=== PATIENT | female | born 1985 | race Caucasian/White ===

== ENCOUNTER 2020-09-29 09:37 | Inpatient (IN) ==
[2020-09-29] MEDS ORDERED: 0.9 % SODIUM CHLORIDE 1,000 ML IV ONE ×2 (10:18→14:35)
[2020-09-29] MEDS ORDERED: PROMETHAZINE 25 MG/ML VIAL IV ONE (10:18)
[2020-09-29] MEDS ORDERED: ACETAMINOPHEN 650 MG/65 ML BOTTLE IV ONE (10:18)
--- NOTE | 2020-09-29 10:25 | Emergency Department Note ---
Nausea/Vomiting/Diarrhea HPI General Chief complaint: Nausea/Vomiting/Diarrhea Stated complaint: N/V/D, Flank pain bilaterally, SOB Time Seen by Provider: 09/29/20 09:49 Source: patient Mode of arrival: ambulatory Limitations: no limitations History of Present Illness HPI Narrative: Narrative: 35-year-old female patient returns emergency department with ongoing chief complaint of persistent nausea, vomiting, diarr hea, abdominal pain, and sweats x6 days. She was seen by a colleague in the emergency department on 09/26 after suffering 3 days similar symptoms. At that time she had some epigastric discomfort as well. She been taking occasional [place]. She had a mild slight cough and complaints of shortness of breath. During that visit she was afebrile with a temperature 98.5. Her laboratory studies were unremarkable with a normal CBC and an essentially normal CMP with the exception of mild AST elevation of 46. She has history of pancreatitis but her lipase was normal at 39. Chest x-ray is performed that was read as negative. Covid swab was performed that was also negative. She was discharged home on Zofran and dietary restrictions. Unfortunately, since being home she has had persistent nausea. She has vomited too numerous to count. Today, she mentions vomiting "every 45 minutes since I have been awake". She also has persistent watery diarrhea. Again too numerous to count. She denies hematochezia or hematemesis. She has had sweats at home. She was initially afebrile in triage. However repeat temperature during examination showed an increase to 100.1. She denies ingesting any foul or suspicious foods prior to symptom onset. She denies any other sick contacts. ROS: Admits to headaches. Denies tinnitus or vision changes. Admits to mild nonproductive cough. Denies runny nose or sinus congestion. Admits to mild shortness of breath. She continues to smoke up to quarter pack daily. Denies retrosternal chest pain or palpitations. Admits to abdominal pain localized around her umbilicus. Denies dysuria, hematuria, urinary frequency, or urinary urgency. Admits to generalized weakness. Related Data Home Medications Medication Instructions Recorded Confirmed escitalopram oxalate 10 mg tablet 15 mg PO QHS 05/09/20 09/29/20 zolpidem 5 mg PO PRN PRN 07/09/20 09/29/20 hydrochlorothiazide 12.5 mg PO QAMP PRN 08/09/20 09/29/20 hydroxyzine HCl 25 mg PO BID PRN 08/09/20 09/29/20 Allergies Allergy/AdvReac Type Severity Reaction Status Date / Time codeine Allergy Intermediate agitation Verified 07/22/20 14:10 gabapentin Allergy Intermediate heart Verified 07/22/20 14:10 palpitations ketorolac [From Toradol] Allergy Intermediate spasms Verified 07/22/20 14:10 tramadol AdvReac Severe Seizure Verified 09/29/20 17:16 morphine AdvReac Vomiting Verified 07/22/20 14:10 Review of Systems ROS ROS Narrative: Narrative: All systems ED: reviewed and negative except as stated. [facility] Narrative Patient History Narrative: Narrative: Medical/Surgical/Family History All Active Problems (Updated 09/29/20 @ 13:06 by Orville Gaspar PA-C) Pancreatitis (Acute) Gastroenteritis (Acute) Pyelonephritis (Acute) Nausea and vomiting (Acute) Epigastric pain (Acute) Social History Smoking Status: Current every day smoker Alcohol Intake Frequency: a few times a week Substance Use: marijuana Exam Narrative Narrative: Narrative: General Limitations: no limitations General appearance: Present other (Well-developed, well-nourished, acutely ill- appearing 35-year-old female patient laying semirecumbent on the emergency room gurney. She is in no acute respiratory distress. She is febrile with a temperature of 100.1. She is tachycardic at 117. At this time she does meet SIRS criteria. Other vital signs are normal.) Head Head: Present normocephalic Eye Eye: Present normal appearance, PERRL and EOMI; Absent scleral icterus and conjunctival injection ENT ENT: Present normal oropharynx and mucous membranes dry Neck Neck: Present trachea midline; Absent lymphadenopathy and thyromegaly Chest Chest: Present symmetric chest wall rise Respiratory Respiratory: Present normal lung sounds bilaterally; Absent respiratory distress, rales/crackles, wheezes, stridor, accessory muscle use, prolonged expiratory phase and decreased breath sounds Cardiovascular Cardiovascular: Present regular rate and normal rhythm; Absent systolic murmur and diastolic murmur Adbominal Abdominal: Present soft, tenderness and hyperactive bowel sounds; Absent distention, guarding, rebound, rigidity, organomegaly and mass Expanded Abdominal Abdominal Tenderness: Present diffuse and moderate Extremities Extremities: Present normal inspection, full ROM and normal capillary refill Back Back: Present normal inspection and full ROM; Absent CVA tenderness (R) and CVA tenderness (L) Neurological Neurological: Present alert and oriented X3 Psychiatric Psychiatric: Present normal affect and normal mood Skin Skin: Present warm (WNL), diaphoretic and normal color Course Course Course Narrative: Differential diagnosis of nausea and vomiting in the adult patient includes the following: Acute gastroenteritis, vestibular neuritis, gastroparesis, GERD, cyclic vomiting syndrome, gastric outlet obstruction, eosinophilic gastroenteritis, and chronic idiopathic intestinal pseudoobstruction. Patient was seen recently in our emergency department and diagnosed gastroenteritis. She continues to have nausea, vomiting, and diarrhea she is likely associated with this diagnosis. However, she is now worsened and is tachycardic and febrile. I am going to order screening laboratory studies. She had a chest x-ray that was considered normal 3 days ago. She has no adventitious lung sounds on exam today. I am not going to order repeat imaging at this time. She had mild diffuse abdominal pain on exam without focal findings. I am going to wait to perform additional abdominal imaging until the results of her other testing are back. Patient was given normal saline 1000 mL as a bolus. She was given Phenergan 25mg IVP to help with the nausea. I am going to give her IV acetaminophen 650 mg to help with the fever. I am going to order stool culture and fecal leukocytes. Reevaluation(s) Reevaluation #1: A review of the patient's diagnostics show the following: CBC WBC 19.9, RBC 4.27, hemoglobin 14.3, hematocrit 41.6, platelets 169. Lactic acid 2.4. CMP CO2 21, glucose 108, total bilirubin 1.6, all others normal limits. Lipase 12. Urinalysis showing cloudy yellow urine with specific gravity 1.013, positive proteinuria, positive ketonuria, positive nitrites, positive leukocyte E[place], positive WBCs/RBCs. There was mention transitional cells and few bacteria. This is considered equivocal case. Abdominal/pelvic CT scan with contrast showing developing pyelonephritis. After reviewing all the data I ordered blood cultures and started the patient on 2 g IV for suspected pyelonephritis. Time: 12:53 Reevaluation #2: After reviewing the data I reached out to our hospitalist (Dr. Manzanraes) about admitting the patient here for ongoing treatment. At this time Dr. Manzanares is excepted the patient for admission. All further treatment decisions, modalities, and ultimate patient disposition be carried out by Dr. Manzanares. Time: 13:32 Vital Signs Vital signs: Vital Signs Temperature 98.4 F 09/29/20 09:42 Pulse Rate 117 H 09/29/20 09:42 Respiratory Rate 18 09/29/20 09:42 Blood Pressure 112/63 09/29/20 09:42 Pulse Oximetry (%) 99 09/29/20 09:42 Temperature 98 F 09/29/20 19:38 Pulse Rate 101 H 09/29/20 19:38 Respiratory Rate 16 09/29/20 19:38 Blood Pressure 104/67 09/29/20 19:38 Pulse Oximetry (%) 98 09/29/20 19:38 MDM MDM Narrative Medical decision making narrative: Narrative: Lab Data Lab results reviewed: Yes I reviewed the patient's lab results. Result diagrams: 09/29/20 11:41 09/29/20 10:30 Labs: Lab Results 09/29/20 09/29/20 09/29/20 Range/Units 10:30 10:37 11:09 WBC (4.5-11.0) K/mcL RBC (4.00-5.20) M/mcL Hgb (12.0-15.0) g/dL Hct (36.0-48.0) % MCV (80.0-100.0) fL MCH (26.0-34.0) pg MCHC (31.0-36.0) g/dL RDW (11.5-14.5) % Plt Count (140-440) K/mcL MPV (7.4-10.4) fL Neut % (Auto) (38.0-78.0) % Lymph % (Auto) (15.0-49.0) % [place] % (Auto) (1.0-12.0) % Eos % (Auto) (0.0-7.0) % Baso % (Auto) (0.0-2.0) % Lymph # (Auto) (1.50-4.80) K/mcL [place] # (Auto) (0.10-0.90) K/mcL Eos # (Auto) (0.00-0.70) K/mcL Baso # (Auto) (0.00-0.20) K/mcL Absolute Neutrophils (1.80-8.00) K/mcL VBG Lactic Acid 2.4 H (0.5-2.0) mmol/L Sodium 133 (133-145) mmol/L Potassium 3.3 (3.3-5.1) mmol/L Chloride 96 (96-108) mmol/L Carbon Dioxide 21 L (22-30) mmol/L Anion Gap 16.0 (8.0-16.0) BUN 8 (6-20) mg/dL Creatinine 1.0 (0.6-1.1) mg/dL GFR Calculation 74 Glucose 108 H (70-105) mg/dL Calcium 8.7 (8.6-10.4) mg/dL Total Bilirubin 1.6 H (0.1-1.0) mg/dL AST 28 (<32) U/L ALT 20 (<40) U/L Alkaline Phosphatase 107 (39-117) U/L Total Protein 7.2 (5.9-8.4) gm/dL Albumin 3.6 (3.2-5.2) gm/dL Globulin 3.6 (2.2-3.7) gm/dL Albumin/Globulin Ratio 1.0 (1.0-2.3) Lipase 12 (7-60) U/L Urine Color Yellow Urine Appearance Cloudy A (Clear) Urine pH 7.0 (5.0-9.0) Ur Specific [place] 1.013 (1.000-1.035) Urine Protein 100 A (Negative) mg/dL Urine Glucose (UA) Negative (Negative) mg/dL Urine Ketones 5 A (Negative) mg/dL Urine Occult Blood 0.20 (Negative) mg/dL Urine Nitrate Pos A (Negative) Urine Bilirubin Negative (Negative) mg/dL Urine Urobilinogen Negative mg/dL Ur Leukocyte Esterase 500 A (Negative) /ug Urine RBC 14 H (0-1) /hpf Urine WBC > 182 H (0-4) /hpf Ur Squamous Epith Cells 21 H (0-4) /hpf Ur Transition Epith Cell 3 H (0-2) /hpf Urine Bacteria Few A (0) /hpf Urine Mucus Few A (None) /hpf Ur Culture Indicated? No 09/29/20 Range/Units 11:41 WBC 19.9 H (4.5-11.0) K/mcL RBC 4.27 (4.00-5.20) M/mcL Hgb 14.3 (12.0-15.0) g/dL Hct 41.6 (36.0-48.0) % MCV 97.4 (80.0-100.0) fL MCH 33.5 (26.0-34.0) pg MCHC 34.4 (31.0-36.0) g/dL RDW 13.9 (11.5-14.5) % Plt Count 169 (140-440) K/mcL MPV 10.0 (7.4-10.4) fL Neut % (Auto) 89.7 H (38.0-78.0) % Lymph % (Auto) 4.8 L (15.0-49.0) % [place] % (Auto) 5.1 (1.0-12.0) % Eos % (Auto) 0.1 (0.0-7.0) % Baso % (Auto) 0.3 (0.0-2.0) % Lymph # (Auto) 0.95 L (1.50-4.80) K/mcL [place] # (Auto) 1.02 H (0.10-0.90) K/mcL Eos # (Auto) 0.01 (0.00-0.70) K/mcL Baso # (Auto) 0.06 (0.00-0.20) K/mcL Absolute Neutrophils 17.83 H (1.80-8.00) K/mcL VBG Lactic Acid (0.5-2.0) mmol/L Sodium (133-145) mmol/L Potassium (3.3-5.1) mmol/L Chloride (96-108) mmol/L Carbon Dioxide (22-30) mmol/L Anion Gap (8.0-16.0) BUN (6-20) mg/dL Creatinine (0.6-1.1) mg/dL GFR Calculation Glucose (70-105) mg/dL Calcium (8.6-10.4) mg/dL Total Bilirubin (0.1-1.0) mg/dL AST (<32) U/L ALT (<40) U/L Alkaline Phosphatase (39-117) U/L Total Protein (5.9-8.4) gm/dL Albumin (3.2-5.2) gm/dL Globulin (2.2-3.7) gm/dL Albumin/Globulin Ratio (1.0-2.3) Lipase (7-60) U/L Urine Color Urine Appearance (Clear) Urine pH (5.0-9.0) Ur Specific [place] (1.000-1.035) Urine Protein (Negative) mg/dL Urine Glucose (UA) (Negative) mg/dL Urine Ketones (Negative) mg/dL Urine Occult Blood (Negative) mg/dL Urine Nitrate (Negative) Urine Bilirubin (Negative) mg/dL Urine Urobilinogen mg/dL Ur Leukocyte Esterase (Negative) /ug Urine RBC (0-1) /hpf Urine WBC (0-4) /hpf Ur Squamous Epith Cells (0-4) /hpf Ur Transition Epith Cell (0-2) /hpf Urine Bacteria (0) /hpf Urine Mucus (None) /hpf Ur Culture Indicated? Radiology Data Radiology results reviewed: Yes I reviewed the patient's radiology results. Radiology results narrative: Verbal read from the radiologist about the patient's abdominal/pelvic CT scan with contrast showing developing pyelonephritis to the right kidney with swelling and edema. No obvious abscess or renal stone noted. Discharge Plan Patient/Caregiver Discharge Instructions Pt seen by BOX ORDER PERSON/PA only: Yes Clinical Impression: Pyelonephritis Patient Disposition: Xfer As Inpt ([facility]) Condition: Good Discharge Date/Time: 09/29/20 15:22
[2020-09-29 11:34] LABS: ALT/SGPT 20 U/L (<40); AST/SGOT 28 U/L (<32); Albumin 3.6 gm/dL (3.2-5.2); Alkaline Phosphatase 107 U/L (39-117); Bilirubin,Total 1.6 mg/dL (0.1-1.0); Blood Urea Nitrogen 8 mg/dL (6-20); Calcium 8.7 mg/dL (8.6-10.4); Carbon Dioxide 21 mmol/L (22-30); Chloride 96 mmol/L (96-108); Globulin 3.6 gm/dL (2.2-3.7); Glomerular Filtration Rate 74; Glucose 108 mg/dL (70-105)
[2020-09-29 12:14] LABS: Basophils # (Auto) 0.06 K/mcL (0.00-0.20); Basophils % (Auto) 0.3 % (0.0-2.0); Eosinophils # (Auto) 0.01 K/mcL (0.00-0.70); Eosinophils % (Auto) 0.1 % (0.0-7.0); Hematocrit 41.6 % (36.0-48.0); Hemoglobin 14.3 g/dL (12.0-15.0); Lymphocytes # (Auto) 0.95 K/mcL (1.50-4.80); Lymphocytes % (Auto) 4.8 % (15.0-49.0); Mean Cell Volume 97.4 fL (80.0-100.0); Mean Corpuscular HGB Conc 34.4 g/dL (31.0-36.0); Monocytes # (Auto) 1.02 K/mcL (0.10-0.90); Monocytes % (Auto) 5.1 % (1.0-12.0); Neutrophils % (Auto) 89.7 % (38.0-78.0); Platelet Count 169 K/mcL (140-440); RBC 4.27 M/mcL (4.00-5.20); Red Cell Distribution Width 13.9 % (11.5-14.5); WBC 19.9 K/mcL (4.5-11.0)
[2020-09-29 12:15] LABS: Appearance,Urine CLOUDY (Clear); Bacteria,Urine FEW /hpf (0); Bilirubin,Urine Negative (Negative); Color,Urine YELLOW; Culture Indicated,Urine No; Glucose,Urine (UA) Negative (Negative); Ketones,Urine 5 mg/dL (Negative); Leukocyte Esterase,Urine 500 /ug (Negative); Mucus,Urine FEW /hpf; Nitrate,Urine POS (Negative); Protein,Urine 100 mg/dL (Negative); Specific Gravity,Urine 1.013 (1.000-1.035); Urine RBC 14 /hpf (0-1); Urine Squamous Epithelial Cell 21 /hpf (0-4); Urine Transitional Epi Cells 3 /hpf (0-2); Urine WBC > 182 /hpf (0-4); Urobilinogen,Urine Negative
[2020-09-29] MEDS ORDERED: cefTRIAXone 2 GM in DEXTROSE 5% IN WATER 50 ML IV ONE (12:49)
[2020-09-29] MEDS ORDERED: ONDANSETRON 4 MG/2 ML VIAL IV ONE (13:09)
--- NOTE | 2020-09-29 14:08 | Internal Med History&Physical ---
HPI History of Present Illness Patient information: Note initiated : 09/29/20 at 2:03 pm Service Date, if different from initiated Date: [] Patient: Tamia Mulligan a 35 y/o F admitted on for N/V/D, Flank pain bilaterally, SOB. Chief Complaint: [] History of present illness: Ms. Mulligan is a 35 year old F Who presents ED with nausea vomiting diarrhea back pain abdominal pain. She was seen several days ago and IV fluids and felt told to follow-up with PCP. Patient has felt she is continue to worsen and she is having hard time keeping fluids down. In the ER she had work-up revealing mildly tachycardic and febrile with a leukocytosis and a mildly elevated lactate 2.4. CT imaging showed pyelonephritis in the right. Her urinalysis was consistent with infection. Abdominal pain is described as primarily over the bladder in the hypogastric re gion. Complaint of headache fever chills. She got dizzy several times after vomiting. Review of Systems: Positive as above. Denies chest pain/cough/dyspnea/. Many 10 point review of system reviewed negative PFSH PFSH All Active Problems (Updated 09/29/20 @ 13:06 by Orville Gaspar PA-C) Pancreatitis (Acute) Gastroenteritis (Acute) Pyelonephritis (Acute) Nausea and vomiting (Acute) Epigastric pain (Acute) Social History (Updated 09/29/20 @ 14:06 by Cheo Manzanares DO) smoking status: Current every day smoker tobacco type: cigarettes per day: 10 alcohol intake frequency: a few times a week substance use type: marijuana additional history: Last medical history: Depression anxiety and occasionally she get swelling in her legs which she takes an occasional hydrochlorothiazide Past surgical history includes cardiac ablation for SVT Family history: Mother had epilepsy father with psychiatric illness Social history: Patient smokes half pack per day drinks alcohol rarely lives with family MEDS/ALLERGIES Home Medications and Allergies Home Medications Medication Instructions Recorded Confirmed Type escitalopram oxalate 10 mg tablet 15 mg PO QDAY 05/09/20 07/09/20 History ondansetron 4 mg disintegrating 4 mg PO Q6H PRN #10 tab 05/09/20 07/09/20 Rx tablet hydrocodone-acetaminophen 1 tab PO Q6H PRN #10 tab 07/09/20 Rx zolpidem 5 mg PO DAILY 07/09/20 07/09/20 History cyclobenzaprine 10 mg PO HS 08/09/20 08/09/20 History hydrochlorothiazide 12.5 mg PO QAM PRN 08/09/20 08/09/20 History hydroxyzine HCl 25 mg PO BID PRN 08/09/20 08/09/20 History ondansetron 4 mg PO Q6H PRN #14 tab 09/26/20 Rx Allergies Allergy/AdvReac Type Severity Reaction Status Date / Time codeine Allergy Intermediate agitation Verified 07/22/20 14:10 gabapentin Allergy Intermediate heart Verified 07/22/20 14:10 palpitations ketorolac [From Toradol] Allergy Intermediate spasms Verified 07/22/20 14:10 morphine AdvReac Vomiting Verified 07/22/20 14:10 EXAM Constitutional Vitals: Temp Pulse Resp BP Pulse Ox 99.4 F H 93 H 27 H 116/85 97 09/29/20 11:18 09/29/20 13:31 09/29/20 13:31 09/29/20 13:31 09/29/20 13:31 DATA Data Completed and Pending Labs: Labs from last 24 hours 09/29/20 09/29/20 09/29/20 11:41 11:09 10:37 WBC 19.9 H RBC 4.27 Hgb 14.3 Hct 41.6 MCV 97.4 MCH 33.5 MCHC 34.4 RDW 13.9 Plt Count 169 MPV 10.0 Neut % (Auto) 89.7 H Lymph % (Auto) 4.8 L [place] % (Auto) 5.1 Eos % (Auto) 0.1 Baso % (Auto) 0.3 Lymph # (Auto) 0.95 L [place] # (Auto) 1.02 H Eos # (Auto) 0.01 Baso # (Auto) 0.06 Absolute Neutrophils 17.83 H VBG Lactic Acid 2.4 H Sodium Potassium Chloride Carbon Dioxide Anion Gap BUN Creatinine GFR Calculation Glucose Calcium Total Bilirubin AST ALT Alkaline Phosphatase Total Protein Albumin Globulin Albumin/Globulin Ratio Lipase Urine Color Yellow Urine Appearance Cloudy A Urine pH 7.0 Ur Specific [place] 1.013 Urine Protein 100 A Urine Glucose (UA) Negative Urine Ketones 5 A Urine Occult Blood 0.20 Urine Nitrate Pos A Urine Bilirubin Negative Urine Urobilinogen Negative Ur Leukocyte Esterase 500 A Urine RBC 14 H Urine WBC > 182 H Ur Squamous Epith Cells 21 H Ur Transition Epith Cell 3 H Urine Bacteria Few A Urine Mucus Few A Ur Culture Indicated? No 09/29/20 09/29/20 10:37 10:30 WBC Pending RBC Pending Hgb Pending Hct Pending MCV Pending MCH Pending MCHC Pending RDW Pending Plt Count Pending MPV Pending Neut % (Auto) Pending Lymph % (Auto) [place] % (Auto) Eos % (Auto) Baso % (Auto) Lymph # (Auto) [place] # (Auto) Eos # (Auto) Baso # (Auto) Absolute Neutrophils VBG Lactic Acid Sodium 133 Potassium 3.3 Chloride 96 Carbon Dioxide 21 L Anion Gap 16.0 BUN 8 Creatinine 1.0 GFR Calculation 74 Glucose 108 H Calcium 8.7 Total Bilirubin 1.6 H AST 28 ALT 20 Alkaline Phosphatase 107 Total Protein 7.2 Albumin 3.6 Globulin 3.6 Albumin/Globulin Ratio 1.0 Lipase 12 Urine Color Urine Appearance Urine pH Ur Specific Balm Urine Protein Urine Glucose (UA) Urine Ketones Urine Occult Blood Urine Nitrate Urine Bilirubin Urine Urobilinogen Ur Leukocyte Esterase Urine RBC Urine WBC Ur Squamous Epith Cells Ur Transition Epith Cell Urine Bacteria Urine Mucus Ur Culture Indicated? A/P Narrative A/P Narrative: A: *Pyelonephritis: *N/V: 2/2 above *Sepsis with lactic acidosis: *Volume depletion: *depression/anxiety: *Tobacco abuse: *mild hyponatremia/hypokalemia: 2/2 above P: -Rocephin, pending BC/UC -IVF -cont psych meds -Smoking cessation counseling -ppx: lovenox Time Spent With Patient Time: Total time spent is greater than 50% in coordination of care (as documented) at patient's floor/unit and/or counseling patient:
[2020-09-29] MEDS ORDERED: POTASSIUM CHLORIDE 20 MEQ TABLET PO PRN (15:38)
[2020-09-29] MEDS ORDERED: MAGNESIUM SULFATE 2 GM/50 ML BAG IV PRN (15:38)
[2020-09-29] MEDS ORDERED: POTASSIUM CHLORIDE 40 MEQ in DEXTROSE 5% IN WATER 500 ML IV PRN (15:38)
[2020-09-29] MEDS ORDERED: IPRATROPIUM/ALBUTEROL 3 ML AMPUL.NEB NEB PRN (15:38)
[2020-09-29] MEDS: 0.9 % SODIUM CHLORIDE 1,000 ML IV SCH ×2 (15:42→22:51)
[2020-09-29] MEDS: ONDANSETRON 4 MG/2 ML VIAL IV PRN (15:47)
[2020-09-29] MEDS: HYDROcodone/APAP 5/325MG TABLET PO PRN ×2 (15:48→20:39)
--- NOTE | 2020-09-29 15:57 | Cat Scan Report ---
History: Worsening abdominal pain nausea vomiting fever and abnormal urinalysis technique: The patient was imaged following injection of intravenous nonionic contrast scanning during the portal venous phase from the diaphragm through the symphysis pubis. Sagittal and coronal reformats were created. The radiation exposure was limited using dose reduction technology. FINDINGS: The liver is normal in size and homogeneous. There is focal fatty infiltration left lobe adjacent to the falciform ligament. The gallbladder is contracted but there are no stones within the lumen. The internal extrahepatic bile ducts are normal in caliber. The spleen is normal in size and homogeneous.. The pancreas is normal in size without evidence of a mass or inflammation. The adrenals are normal and symmetric. There is moderate edema in the parenchyma throughout the right kidney and stranding of the perirenal fat. There is mild fullness of the right renal collecting system and thickening of the urothelium. No stone is seen within the kidney nor ureter. There is fat stranding around the proximal portion of the ureter. The left kidney is normal without evidence of inflammation or hydronephrosis. There is no mass in either side. The bowel gas pattern is normal. The appendix is noninflamed. The uterus is normal. The right ovary is heterogeneous and may contain a corpus luteum. Left ovary is normal. No free fluid or free intraperitoneal air are present. There is no adenopathy. IMPRESSION: Acute right-sided pyelonephritis Orville Gaspar was called with the results Interpreted and Authenticated by: Oscar Willson 09/29/20
[2020-09-29] MEDS: ACETAMINOPHEN 325 MG TABLET PO PRN (19:34)
[2020-09-29] MEDS: PROMETHAZINE 25 MG/ML VIAL IV PRN (19:35)
[2020-09-29] MEDS: 0.9 % SODIUM CHLORIDE 10 ML SYRINGE IV SCH (22:51)
[2020-09-29] MEDS: POTASSIUM CHLORIDE 20 MEQ TABLET PO PRN (23:43)
[2020-09-30] MEDS: HYDROcodone/APAP 5/325MG TABLET PO PRN ×4 (01:38→17:04)
[2020-09-30] MEDS: PROMETHAZINE 25 MG/ML VIAL IV PRN ×3 (01:38→17:04)
[2020-09-30] MEDS: 0.9 % SODIUM CHLORIDE 10 ML SYRINGE IV SCH ×3 (05:25→20:49)
[2020-09-30 06:10] LABS: Basophils # (Auto) 0.05 K/mcL (0.00-0.20); Basophils % (Auto) 0.3 % (0.0-2.0); Eosinophils # (Auto) 0.12 K/mcL (0.00-0.70); Eosinophils % (Auto) 0.7 % (0.0-7.0); Hematocrit 37.3 % (36.0-48.0); Hemoglobin 12.5 g/dL (12.0-15.0); Lymphocytes % (Auto) 9.3 % (15.0-49.0); Mean Cell Volume 100.5 fL (80.0-100.0); Mean Corpuscular HGB Conc 33.5 g/dL (31.0-36.0); Mean Platelet Volume 10.9 fL (7.4-10.4); Monocytes # (Auto) 1.03 K/mcL (0.10-0.90); Neutrophils % (Auto) 83.7 % (38.0-78.0); Platelet Count 173 K/mcL (140-440); RBC 3.71 M/mcL (4.00-5.20); Red Cell Distribution Width 14.2 % (11.5-14.5); WBC 17.2 K/mcL (4.5-11.0)
[2020-09-30 07:14] LABS: ALT/SGPT 14 U/L (<40); AST/SGOT 22 U/L (<32); Albumin 2.8 gm/dL (3.2-5.2); Albumin/Globulin Ratio 0.9 (1.0-2.3); Alkaline Phosphatase 91 U/L (39-117); Bilirubin,Direct 0.2 mg/dL (<0.3); Bilirubin,Total 0.6 mg/dL (0.1-1.0); Blood Urea Nitrogen 6 mg/dL (6-20); Calcium 7.5 mg/dL (8.6-10.4); Carbon Dioxide 18 mmol/L (22-30); Chloride 106 mmol/L (96-108); Globulin 3.1 gm/dL (2.2-3.7); Glomerular Filtration Rate 84; Glucose 102 mg/dL (70-105); Lactate Dehydrogenase 218 U/L (135-225); Phosphorous 1.4 mg/dL (2.5-4.5); Triglycerides 118 mg/dL (<150); Uric Acid 3.8 mg/dL (2.5-8.0)
[2020-09-30] MEDS: POTASSIUM CHLORIDE 20 MEQ TABLET PO PRN (07:52)
[2020-09-30] MEDS: ENOXAPARIN 40 MG/0.4 ML SYRINGE SQ SCH (07:57)
[2020-09-30] MEDS: cefTRIAXone 2 GM in DEXTROSE 5% IN WATER 50 ML IV SCH (07:59)
[2020-09-30] MEDS ORDERED: MAGNESIUM SULFATE 8.12 MEQ in DEXTROSE 5% IN WATER 50 ML IV ONE (08:46)
--- NOTE | 2020-09-30 08:47 | Internal Med Progress Note ---
SUBJECTIVE Subjective Patient information: Note initiated : 09/30/20 at 8:43 am Service Date, if different from initiated Date: [] Patient: Tamia Mulligan a 35 y/o F admitted on 09/29/20 for N/V/D, Flank pain bilaterally, SOB. Chief Complaint: [] Interval history: History of present illness: Ms. Mulligan is a 35 year old F Who presents ED with nausea vomiting diarrhea back pain abdominal pain. She was seen several days ago and IV fluids and felt told to follow-up with PCP. Patient has felt she is continue to worsen and she is having hard time keeping fluids down. In the ER she had work-up revealing mildly tachycardic and febrile with a leukoc ytosis and a mildly elevated lactate 2.4. CT imaging showed pyelonephritis in the right. Her urinalysis was consistent with infection. Abdominal pain is described as primarily over the bladder in the hypogastric region. Complaint of headache fever chills. She got dizzy several times after vomiting. 09/30 Did have some headache through the night. Some nausea but no vomiting. Fevers and chills. But states overall feeling little better. Leukocytosis mildly improved. Low sodium potassium being replaced. Flank pain improving. Review of Systems: denies vomiting/chest pain/cough/dyspnea. Otherwise see above. Constitutional Vitals: Vital Signs Temp Pulse Resp BP Pulse Ox 97.9 F 120 H 18 122/79 100 09/30/20 07:26 09/30/20 08:00 09/30/20 08:00 09/30/20 07:26 09/30/20 08:00 Period Temp Pulse Resp BP Sys/Hearn Pulse Ox Last 24 Hr 97.5 F-101.7 F 78-120 13-27 99-124/52-112 97-100 Intake and Output 09/29/20 09/30/20 09/30/20 21:59 05:59 13:59 Intake Total 1283 2920 Output Total 300 1125 500 Balance 983 1795 -500 Weight 79.878 kg Intake & Output: Intake & Output 09/29/20 09/30/20 09/30/20 21:59 05:59 13:59 Intake Total 1283 2920 Output Total 300 1125 500 Balance 983 1795 -500 Weight 79.878 kg Intake: IV 683 2000 Sodium Chloride 0.9% 1,000 ml @ 633 2000 150 mls/hr IV .Q6H40M [facility] Rx#: [id number] Rocephin 2 gm In Dextrose 5% in 50 Water 50 ml @ 100 mls/hr IV ONCE ONE Rx#:[id number] Oral 600 920 Output: Void Amount 300 1125 500 Other: Urine Appearance Cloudy Cloudy Clear Sediment Urine Color Bright Yellow Bright Yellow Dark [place] Urine Odor Normal Stool Size Moderate Small Small Stool Color Yellow Yellow Yellow Stool Consistency Watery Watery Watery Loose Loose Loose # Voids 1 # Unmeasured Emesis 1 # Bowel Movements 1 1 Exam: General: Alert, Awake, No acute Distress Eyes/N/T: EOMI, , Head/Neck: neck supple, CV: RRR, No murmurs, Pulm: Clear b/l, no wheezing/rhonchi/rales Abd: soft, nontender, +BS x4 Ext: no clubbing/cyanosis/edema Neuro: Alert, no focal deficits, moves all extremities, Skin: warm/dry OBJ DATA Labs CBC & Chem 7: 09/30/20 05:26 09/30/20 05:26 Labs: Abnormal Lab Results 09/30/20 09/30/20 09/29/20 05:26 05:26 11:41 WBC 17.2 H 19.9 H RBC 3.71 L MCV 100.5 H MPV 10.9 H Neut % (Auto) 83.7 H 89.7 H Lymph % (Auto) 9.3 L 4.8 L Lymph # (Auto) 0.95 L [place] # (Auto) 1.03 H 1.02 H Absolute Neutrophils 14.43 H 17.83 H VBG Lactic Acid Carbon Dioxide 18 L Glucose Calcium 7.5 L Phosphorus 1.4 L Magnesium 1.5 L Total Bilirubin GGT 63 H Albumin 2.8 L Albumin/Globulin Ratio 0.9 L Urine Appearance Urine Protein Urine Ketones Urine Nitrate Ur Leukocyte Esterase Urine RBC Urine WBC Ur Squamous Epith Cells Ur Transition Epith Cell Urine Bacteria Urine Mucus 09/29/20 09/29/20 09/29/20 11:09 10:37 10:30 WBC RBC MCV MPV Neut % (Auto) Lymph % (Auto) Lymph # (Auto) [place] # (Auto) Absolute Neutrophils VBG Lactic Acid 2.4 H Carbon Dioxide 21 L Glucose 108 H Calcium Phosphorus Magnesium Total Bilirubin 1.6 H GGT Albumin Albumin/Globulin Ratio Urine Appearance Cloudy A Urine Protein 100 A Urine Ketones 5 A Urine Nitrate Pos A Ur Leukocyte Esterase 500 A Urine RBC 14 H Urine WBC > 182 H Ur Squamous Epith Cells 21 H Ur Transition Epith Cell 3 H Urine Bacteria Few A Urine Mucus Few A Meds: Medications Acetaminophen (Tylenol) 650 mg PO Q6HP PRN PRN Reason: PAIN/FEVER > 101 Last Admin: 09/29/20 19:34 Dose: 650 mg Documented by: Hydrocodone Bitart/Acetaminophen ([place] 5/325mg) 1 tab PO Q4HP PRN PRN Reason: PAIN LEVEL 3-6 Last Admin: 09/30/20 07:52 Dose: 1 tab Documented by: Albuterol/Ipratropium (Duoneb) 3 ml NEB Q4HP PRN PRN Reason: Shortness Of Breath Enoxaparin Sodium (Lovenox) 40 mg SQ DAILY [facility] Last Admin: 09/30/20 07:57 Dose: 40 mg Documented by: Potassium Chloride 40 meq/ (Dextrose) 520 mls @ 130 mls/hr IV UD PRN PRN Reason: Potassium < 3 Magnesium Sulfate (Magnesium Sulfate) 2 gm in 50 mls @ 50 mls/hr IV UD PRN PRN Reason: Magnesium </= 1.6 Last Admin: 09/30/20 08:36 Dose: 50 mls/hr Documented by: Ceftriaxone Sodium 2 gm/ (Dextrose) 50 mls @ 100 mls/hr IV Q24H [facility]; Protocol Last Admin: 09/30/20 07:59 Dose: 100 mls/hr Documented by: Nicotine (Nicoderm) 14 mg TOPICAL DAILY@1000 EDUARDO Last Admin: 09/30/20 08:30 Dose: 14 mg Documented by: Ondansetron HCl (Zofran) 4 mg IV Q4HP PRN PRN Reason: Nausea And Vomiting Last Admin: 09/29/20 15:47 Dose: 4 mg Documented by: Potassium Chloride (Kdur) 40 meq PO UD PRN PRN Reason: Potssium is 3-3.5 Last Admin: 09/30/20 07:52 Dose: 40 meq Documented by: Potassium Chloride (Kdur) 40 meq PO UD PRN PRN Reason: Potassium < 3 Promethazine HCl (Phenergan) 12.5 mg IV Q6HP PRN PRN Reason: Nausea And Vomiting Last Admin: 09/30/20 07:55 Dose: 12.5 mg Documented by: Sodium Chloride (Saline Flush) 10 ml IV Q8 EDUARDO Last Admin: 09/30/20 05:25 Dose: Not Given Documented by: A/P Narrative A/P Narrative: A: *Pyelonephritis: *N/V: 2/2 above *Sepsis with lactic acidosis: *Volume depletion: improved *depression/anxiety: *Tobacco abuse: *mild hyponatremia/hypokalemia: 2/2 above P: -Rocephin, pending BC/ - -cont psych meds -Smoking cessation counseling -ppx: lovenox Time Spent With Patient Time: Total time spent is greater than 50% in coordination of care (as documented) at patient's floor/unit and/or counseling patient: QUALITY VTE Deep Vein Thrombosis/Pulmonary Embolism Present on Admission: No
[2020-09-30] MEDS ORDERED: diphenhydrAMINE 50 MG/ML VIAL IV PRN (09:05)
[2020-09-30] MEDS: PHOSPHORUS 250 MG TABLET PO SCH ×2 (09:20→20:42)
[2020-09-30] MEDS: LOPERAMIDE 2 MG CAPSULE PO PRN ×3 (09:20→20:46)
[2020-09-30] MEDS: NEUTRA PHOS 1 PACKET PO SCH ×2 (09:20→20:48)
[2020-09-30] MEDS: NICOTINE 21 MG PATCH TOPICAL SCH (09:35)
[2020-09-30] MEDS ORDERED: FLU VACC QS2020-21(6MOS UP)/PF 60 MCG/0.5 ML SYRINGE IM ONE (10:00)
[2020-09-30] MEDS ORDERED: NICOTINE 14 MG PATCH TOPICAL SCH (10:00)
[2020-09-30] MEDS: ONDANSETRON 4 MG/2 ML VIAL IV PRN (11:53)
[2020-09-30] MEDS: ACETAMINOPHEN 325 MG TABLET PO PRN (17:38)
[2020-10-01] MEDS: HYDROcodone/APAP 5/325MG TABLET PO PRN ×5 (00:26→21:20)
[2020-10-01] MEDS: PROMETHAZINE 25 MG/ML VIAL IV PRN ×2 (00:26→16:27)
[2020-10-01] MEDS: 0.9 % SODIUM CHLORIDE 10 ML SYRINGE IV SCH ×3 (04:34→21:22)
[2020-10-01] MEDS: LOPERAMIDE 2 MG CAPSULE PO PRN ×2 (04:34→14:29)
[2020-10-01 05:57] LABS: Basophils # (Auto) 0.05 K/mcL (0.00-0.20); Basophils % (Auto) 0.5 % (0.0-2.0); Eosinophils # (Auto) 0.15 K/mcL (0.00-0.70); Eosinophils % (Auto) 1.5 % (0.0-7.0); Hematocrit 38.4 % (36.0-48.0); Hemoglobin 12.6 g/dL (12.0-15.0); Lymphocytes # (Auto) 1.44 K/mcL (1.50-4.80); Lymphocytes % (Auto) 14.3 % (15.0-49.0); Mean Cell Volume 102.1 fL (80.0-100.0); Mean Corpuscular HGB Conc 32.8 g/dL (31.0-36.0); Mean Platelet Volume 10.1 fL (7.4-10.4); Monocytes # (Auto) 0.87 K/mcL (0.10-0.90); Monocytes % (Auto) 8.6 % (1.0-12.0); Neutrophils % (Auto) 75.1 % (38.0-78.0); Platelet Count 193 K/mcL (140-440); RBC 3.76 M/mcL (4.00-5.20); Red Cell Distribution Width 14.3 % (11.5-14.5); WBC 10.1 K/mcL (4.5-11.0)
[2020-10-01 06:34] LABS: ALT/SGPT 13 U/L (<40); AST/SGOT 17 U/L (<32); Albumin 2.7 gm/dL (3.2-5.2); Albumin/Globulin Ratio 0.8 (1.0-2.3); Alkaline Phosphatase 98 U/L (39-117); Bilirubin,Direct 0.2 mg/dL (<0.3); Bilirubin,Total 0.6 mg/dL (0.1-1.0); Blood Urea Nitrogen 3 mg/dL (6-20); Calcium 8.1 mg/dL (8.6-10.4); Carbon Dioxide 19 mmol/L (22-30); Chloride 104 mmol/L (96-108); Globulin 3.6 gm/dL (2.2-3.7); Glomerular Filtration Rate 84; Glucose 85 mg/dL (70-105); Lactate Dehydrogenase 225 U/L (135-225); Phosphorous 1.7 mg/dL (2.5-4.5); Triglycerides 185 mg/dL (<150); Uric Acid 3.9 mg/dL (2.5-8.0)
[2020-10-01] MEDS: ONDANSETRON 4 MG/2 ML VIAL IV PRN ×3 (07:05→21:21)
[2020-10-01] MEDS ORDERED: POTASSIUM PHOSPHATE 20 MEQ in DEXTROSE 5% IN WATER 250 ML IV ONE (08:00)
[2020-10-01] MEDS: ENOXAPARIN 40 MG/0.4 ML SYRINGE SQ SCH (08:09)
[2020-10-01] MEDS: NICOTINE 21 MG PATCH TOPICAL SCH (09:22)
[2020-10-01] MEDS: cefTRIAXone 2 GM in DEXTROSE 5% IN WATER 50 ML IV SCH (09:22)
--- NOTE | 2020-10-01 15:04 | Internal Med Progress Note ---
SUBJECTIVE Subjective Patient information: Note initiated : 10/01/20 at 3:04 pm Service Date, if different from initiated Date: [] Patient: Tamia Mulligan a 35 y/o F admitted on 09/29/20 for N/V/D, Flank pain bilaterally, SOB. Chief Complaint: [] Interval history: History of present illness: Ms. Mulligan is a 35 year old F Who presents ED with nausea vomiting diarrhea back pain abdominal pain. She was seen several days ago and IV fluids and felt told to follow-up with PCP. Patient has felt she is continue to worsen and she is having hard time keeping fluids down. In the ER she had work-up revealing mildly tachycardic and febrile with a leukocytosis and a mildly elevated lactate 2.4. CT imaging showed pyelonephritis in the right. Her urinalysis was consistent with infection. Abdominal pain is described as primarily over the bladder in the hypogastric region. Complaint of headache fever chills. She got dizzy several times after vomiting. 09/30 Did have some headache through the night. Some nausea but no vomiting. Fevers and chills. But states overall feeling little better. Leukocytosis mildly improved. Low sodium potassium being replaced. Flank pain improving. 10/01 Pt still feels abd pain and nausea. Blood culture showed positive for GNB, sensitivity pending Urine culture showed Ecoli, sensitive to cephalosporine and cipro Review of Systems: denies vomiting/chest pain/cough/dyspnea. Otherwise see above. Constitutional Vitals: Vital Signs Temp Pulse Resp BP Pulse Ox 98.7 F 78 18 128/76 98 10/01/20 12:00 10/01/20 12:00 10/01/20 12:00 10/01/20 12:00 10/01/20 12:00 Period Temp Pulse Resp BP Sys/Hearn Pulse Ox Last 24 Hr 97.3 F-100.0 F 78-109 16-18 116-138/72-80 96-99 Intake and Output 10/01/20 10/01/20 10/01/20 05:59 13:59 21:59 Intake Total 4082 431.3958 Output Total 2600 2155 800 Balance -850 -1850.4545 -800 Intake & Output: Intake & Output 10/01/20 10/01/20 10/01/20 05:59 13:59 21:59 Intake Total 1523 388.4776 Output Total 2600 2155 800 Balance -832 -3398.4541 -392 Intake: IV 304.5455 Potassium Phosphate 20 Meq In 254.5455 Dextrose 5% in Water 250 ml @ 127.273 mls/hr IV ONCE ONE Rx#: [id number] Rocephin 2 gm In Dextrose 5% in 50 Water 50 ml @ 100 mls/hr IV Q24H [facility] Rx#:[id number] Oral 1750 Output: Void Amount 2600 2155 800 Other: Urine Color Bright Yellow Stool Size Small Small Small Stool Color Green Green Stool Consistency Watery Watery # Bowel Movements 1 Additional findings Additional findings: General: Alert, Awake, No acute Distress Eyes/N/T: EOMI Head/Neck: neck supple CV: RRR, No murmurs, Pulm: Clear b/l, no wheezing/rhonchi/rales Abd: soft, nontender, +BS x4. No CVA tenderness Ext: no clubbing/cyanosis/edema Neuro: Alert, no focal deficits, moves all extremities, Skin: warm/dry OBJ DATA Labs CBC & Chem 7: 10/01/20 05:12 10/01/20 05:12 Labs: Abnormal Lab Results 10/01/20 10/01/20 09/30/20 05:12 05:12 05:26 WBC RBC 3.76 L MCV 102.1 H MPV Neut % (Auto) Lymph % (Auto) 14.3 L Lymph # (Auto) 1.44 L [place] # (Auto) Absolute Neutrophils VBG Lactic Acid Carbon Dioxide 19 L 18 L BUN 3 L Glucose Calcium 8.1 L 7.5 L Phosphorus 1.7 L 1.4 L Magnesium 1.5 L Total Bilirubin GGT 59 H 63 H Albumin 2.7 L 2.8 L Albumin/Globulin Ratio 0.8 L 0.9 L Triglycerides 185 H Urine Appearance Urine Protein Urine Ketones Urine Nitrate Ur Leukocyte Esterase Urine RBC Urine WBC Ur Squamous Epith Cells Ur Transition Epith Cell Urine Bacteria Urine Mucus 09/30/20 09/29/20 09/29/20 05:26 11:41 11:09 WBC 17.2 H 19.9 H RBC 3.71 L MCV 100.5 H MPV 10.9 H Neut % (Auto) 83.7 H 89.7 H Lymph % (Auto) 9.3 L 4.8 L Lymph # (Auto) 0.95 L [place] # (Auto) 1.03 H 1.02 H Absolute Neutrophils 14.43 H 17.83 H VBG Lactic Acid Carbon Dioxide BUN Glucose Calcium Phosphorus Magnesium Total Bilirubin GGT Albumin Albumin/Globulin Ratio Triglycerides Urine Appearance Cloudy A Urine Protein 100 A Urine Ketones 5 A Urine Nitrate Pos A Ur Leukocyte Esterase 500 A Urine RBC 14 H Urine WBC > 182 H Ur Squamous Epith Cells 21 H Ur Transition Epith Cell 3 H Urine Bacteria Few A Urine Mucus Few A 09/29/20 09/29/20 10:37 10:30 WBC RBC MCV MPV Neut % (Auto) Lymph % (Auto) Lymph # (Auto) [place] # (Auto) Absolute Neutrophils VBG Lactic Acid 2.4 H Carbon Dioxide 21 L BUN Glucose 108 H Calcium Phosphorus Magnesium Total Bilirubin 1.6 H GGT Albumin Albumin/Globulin Ratio Triglycerides Urine Appearance Urine Protein Urine Ketones Urine Nitrate Ur Leukocyte Esterase Urine RBC Urine WBC Ur Squamous Epith Cells Ur Transition Epith Cell Urine Bacteria Urine Mucus Meds: Medications Acetaminophen (Tylenol) 650 mg PO Q6HP PRN PRN Reason: PAIN/FEVER > 101 Last Admin: 09/30/20 17:38 Dose: 650 mg Documented by: Hydrocodone Bitart/Acetaminophen ([place] 5/325mg) 1 tab PO Q4HP PRN PRN Reason: PAIN LEVEL 3-6 Last Admin: 10/01/20 12:02 Dose: 1 tab Documented by: Albuterol/Ipratropium (Duoneb) 3 ml NEB Q4HP PRN PRN Reason: Shortness Of Breath Diphenhydramine HCl (Benadryl) 25 mg IV Q4-6HP PRN PRN Reason: Nausea Enoxaparin Sodium (Lovenox) 40 mg SQ DAILY [facility] Last Admin: 10/01/20 08:09 Dose: 40 mg Documented by: Potassium Chloride 40 meq/ (Dextrose) 520 mls @ 130 mls/hr IV UD PRN PRN Reason: Potassium < 3 Magnesium Sulfate (Magnesium Sulfate) 2 gm in 50 mls @ 50 mls/hr IV UD PRN PRN Reason: Magnesium </= 1.6 Last Infusion: 09/30/20 09:36 Dose: Infused Documented by: Ceftriaxone Sodium 2 gm/ (Dextrose) 50 mls @ 100 mls/hr IV Q24H [facility]; Protocol Last Infusion: 10/01/20 09:55 Dose: Infused Documented by: Loperamide HCl (Imodium) 2 mg PO PRN PRN PRN Reason: Diarrhea Last Admin: 10/01/20 14:29 Dose: 2 mg Documented by: Nicotine (Nicoderm) 21 mg TOPICAL DAILY@1000 EDUARDO Last Admin: 10/01/20 09:22 Dose: 21 mg Documented by: Ondansetron HCl (Zofran) 4 mg IV Q4HP PRN PRN Reason: Nausea And Vomiting Last Admin: 10/01/20 12:03 Dose: 4 mg Documented by: Potassium Chloride (Kdur) 40 meq PO UD PRN PRN Reason: Potssium is 3-3.5 Last Admin: 09/30/20 07:52 Dose: 40 meq Documented by: Potassium Chloride (Kdur) 40 meq PO UD PRN PRN Reason: Potassium < 3 Promethazine HCl (Phenergan) 12.5 mg IV Q6HP PRN PRN Reason: Nausea And Vomiting Last Admin: 10/01/20 00:26 Dose: 12.5 mg Documented by: Sodium Chloride (Saline Flush) 10 ml IV Q8 EDUARDO Last Admin: 10/01/20 14:19 Dose: 10 ml Documented by: A/P Narrative A/P Narrative: 1. Pyelonephritis: CT abd showed Right pyelonephritis Urine culture showed Ecoli, sensitive to cephalosporins and cipro WBC went down to 10.1 Continue rocephin 2. Bacteremia - GNB Repeat blood culture, continue rocephin 3. Sepsis with lactic acidosis: 4. Volume depletion: improved 5. depression/anxiety: 6. Tobacco abuse: 7. mild hyponatremia/hypokalemia: 2/2 above P: -Rocephin, pending blood culture sensitivity -cont psych meds -Smoking cessation counseling -ppx: lovenox Time Spent With Patient Time: Total time spent is greater than 50% in coordination of care (as documented) at patient's floor/unit and/or counseling patient: QUALITY VTE Deep Vein Thrombosis/Pulmonary Embolism Present on Admission: No
[2020-10-01] MEDS ORDERED: HYDROCHLOROTHIAZIDE 12.5 MG CAPSULE PO PRN (21:09)
[2020-10-01] MEDS: ZOLPIDEM 5 MG TABLET PO PRN (22:09)
[2020-10-02] MEDS: 0.9 % SODIUM CHLORIDE 10 ML SYRINGE IV SCH ×3 (04:04→20:15)
[2020-10-02] MEDS: PROMETHAZINE 25 MG/ML VIAL IV PRN ×3 (04:15→20:14)
[2020-10-02] MEDS: HYDROcodone/APAP 5/325MG TABLET PO PRN ×4 (04:15→20:14)
[2020-10-02 07:42] LABS: Phosphorous 1.9 mg/dL (2.5-4.5)
[2020-10-02] MEDS: ONDANSETRON 4 MG/2 ML VIAL IV PRN (07:43)
[2020-10-02 08:52] LABS: Basophils # (Auto) 0.06 K/mcL (0.00-0.20); Basophils % (Auto) 0.6 % (0.0-2.0); Eosinophils # (Auto) 0.13 K/mcL (0.00-0.70); Eosinophils % (Auto) 1.4 % (0.0-7.0); Hematocrit 37.4 % (36.0-48.0); Hemoglobin 12.7 g/dL (12.0-15.0); Lymphocytes # (Auto) 2.05 K/mcL (1.50-4.80); Lymphocytes % (Auto) 21.9 % (15.0-49.0); Mean Cell Volume 97.1 fL (80.0-100.0); Mean Platelet Volume 10.3 fL (7.4-10.4); Monocytes # (Auto) 1.06 K/mcL (0.10-0.90); Monocytes % (Auto) 11.3 % (1.0-12.0); Neutrophils % (Auto) 64.8 % (38.0-78.0); Platelet Count 265 K/mcL (140-440); RBC 3.85 M/mcL (4.00-5.20); Red Cell Distribution Width 14.3 % (11.5-14.5); WBC 9.3 K/mcL (4.5-11.0)
[2020-10-02 09:03] LABS: ALT/SGPT 14 U/L (<40); AST/SGOT 18 U/L (<32); Albumin 3.1 gm/dL (3.2-5.2); Albumin/Globulin Ratio 0.9 (1.0-2.3); Alkaline Phosphatase 95 U/L (39-117); Bilirubin,Total 0.6 mg/dL (0.1-1.0); Blood Urea Nitrogen 2 mg/dL (6-20); Calcium 8.8 mg/dL (8.6-10.4); Carbon Dioxide 19 mmol/L (22-30); Chloride 104 mmol/L (96-108); Globulin 3.5 gm/dL (2.2-3.7); Glomerular Filtration Rate 74; Glucose 90 mg/dL (70-105)
[2020-10-02] MEDS ORDERED: POTASSIUM PHOSPHATE 40 MEQ in DEXTROSE 5% IN WATER 500 ML IV ONE (09:23)
[2020-10-02] MEDS: LOPERAMIDE 2 MG CAPSULE PO PRN (09:28)
[2020-10-02] MEDS: NICOTINE 21 MG PATCH TOPICAL SCH (09:29)
[2020-10-02] MEDS: ENOXAPARIN 40 MG/0.4 ML SYRINGE SQ SCH (09:32)
[2020-10-02] MEDS: cefTRIAXone 2 GM in DEXTROSE 5% IN WATER 50 ML IV SCH (09:44)
--- NOTE | 2020-10-02 17:11 | Internal Med Progress Note ---
SUBJECTIVE Subjective Patient information: Note initiated : 10/02/20 at 5:07 pm Service Date, if different from initiated Date: [] Patient: Tamia Mulligan a 35 y/o F admitted on 09/29/20 for N/V/D, Flank pain bilaterally, SOB. Chief Complaint: [] Interval history: History of present illness: Ms. Mulligan is a 35 year old F Who presents ED with nausea vomiting diarrhea back pain abdominal pain. She was seen several days ago and IV fluids and felt told to follow-up with PCP. Patient has felt she is continue to worsen and she is having hard time keeping fluids down. In the ER she had work-up revealing mildly tachycardic and febrile with a leukocytosis and a mildly elevated lactate 2.4. CT imaging showed pyelonephritis in the right. Her urinalysis was consistent with infection. Abdominal pain is described as primarily over the bladder in the hypogastric region. Complaint of headache fever chills. She got dizzy several times after vomiting. 09/30 Did have some headache through the night. Some nausea but no vomiting. Fevers and chills. But states overall feeling little better. Leukocytosis mildly improved. Low sodium potassium being replaced. Flank pain improving. 10/01 Pt still feels abd pain and nausea. Blood culture showed positive for GNB, sensitivity pending Urine culture showed Ecoli, sensitive to cephalosporine and cipro 10/02 Pt still feels some nausea. This morning she had low fever. Phos 1.9 today Continue rocephin and watch one morning night. Review of Systems: denies vomiting/chest pain/cough/dyspnea. Otherwise see above. Constitutional Vitals: Vital Signs Temp Pulse Resp BP Pulse Ox 98.6 F 103 H 18 140/81 98 10/02/20 16:00 10/02/20 16:00 10/02/20 16:00 10/02/20 12:00 10/02/20 16:00 Period Temp Pulse Resp BP Sys/Hearn Pulse Ox Last 24 Hr 98.3 F-99.7 F 85-108 14-18 112-140/70-86 94-99 Intake and Output 10/02/20 10/02/20 10/02/20 05:59 13:59 21:59 Intake Total 1700 1050 480 Output Total 2700 4300 650 Balance -1000 -3250 -170 Weight 81.873 kg Intake & Output: Intake & Output 10/02/20 10/02/20 10/02/20 05:59 13:59 21:59 Intake Total 1700 1050 480 Output Total 2700 4300 650 Balance -999 -994 - Weight 81.873 kg Intake: IV 50 Rocephin 2 gm In Dextrose 5% in 50 Water 50 ml @ 100 mls/hr IV Q24H [facility] Rx#:[id number] Oral 1700 1000 480 Output: Void Amount 2700 4300 650 Other: Meal Breakfast Percent of Meal Consumed 25% Urine Appearance Clear Urine Color Bright Yellow Stool Size Moderate Stool Color Green Stool Consistency Loose Additional findings Additional findings: General: Alert, Awake, No acute Distress Eyes/N/T: EOMI Head/Neck: neck supple CV: RRR, No murmurs, Pulm: Clear b/l, no wheezing/rhonchi/rales Abd: soft, nontender, +BS x4. No CVA tenderness (almost resolved) Ext: no clubbing/cyanosis/edema Neuro: Alert, no focal deficits, moves all extremities, Skin: warm/dry OBJ DATA Labs CBC & Chem 7: 10/02/20 05:32 10/02/20 05:32 Labs: Abnormal Lab Results 10/02/20 10/02/20 10/02/20 05:32 05:32 05:32 WBC RBC 3.85 L MCV MPV Neut % (Auto) Lymph % (Auto) Lymph # (Auto) [place] # (Auto) 1.06 H Absolute Neutrophils Carbon Dioxide 19 L BUN 2 L Calcium Phosphorus 1.9 L Magnesium GGT Albumin 3.1 L Albumin/Globulin Ratio 0.9 L Triglycerides 10/01/20 10/01/20 09/30/20 05:12 05:12 05:26 WBC RBC 3.76 L MCV 102.1 H MPV Neut % (Auto) Lymph % (Auto) 14.3 L Lymph # (Auto) 1.44 L [place] # (Auto) Absolute Neutrophils Carbon Dioxide 19 L 18 L BUN 3 L Calcium 8.1 L 7.5 L Phosphorus 1.7 L 1.4 L Magnesium 1.5 L GGT 59 H 63 H Albumin 2.7 L 2.8 L Albumin/Globulin Ratio 0.8 L 0.9 L Triglycerides 185 H 09/30/20 05:26 WBC 17.2 H RBC 3.71 L MCV 100.5 H MPV 10.9 H Neut % (Auto) 83.7 H Lymph % (Auto) 9.3 L Lymph # (Auto) [place] # (Auto) 1.03 H Absolute Neutrophils 14.43 H Carbon Dioxide BUN Calcium Phosphorus Magnesium GGT Albumin Albumin/Globulin Ratio Triglycerides Meds: Medications Acetaminophen (Tylenol) 650 mg PO Q6HP PRN PRN Reason: PAIN/FEVER > 101 Last Admin: 09/30/20 17:38 Dose: 650 mg Documented by: Hydrocodone Bitart/Acetaminophen ([place] 5/325mg) 1 tab PO Q4HP PRN PRN Reason: PAIN LEVEL 3-6 Last Admin: 10/02/20 13:16 Dose: 1 tab Documented by: Albuterol/Ipratropium (Duoneb) 3 ml NEB Q4HP PRN PRN Reason: Shortness Of Breath Diphenhydramine HCl (Benadryl) 25 mg IV Q4-6HP PRN PRN Reason: Nausea Enoxaparin Sodium (Lovenox) 40 mg SQ DAILY [facility] Last Admin: 10/02/20 09:32 Dose: 40 mg Documented by: Escitalopram Oxalate (Lexapro) 15 mg PO QHS [facility] Hydrochlorothiazide (O[place]ic) 12.5 mg PO DAILYP PRN PRN Reason: Edema Potassium Chloride 40 meq/ (Dextrose) 520 mls @ 130 mls/hr IV UD PRN PRN Reason: Potassium < 3 Magnesium Sulfate (Magnesium Sulfate) 2 gm in 50 mls @ 50 mls/hr IV UD PRN PRN Reason: Magnesium </= 1.6 Last Infusion: 09/30/20 09:36 Dose: Infused Documented by: Ceftriaxone Sodium 2 gm/ (Dextrose) 50 mls @ 100 mls/hr IV Q24H [facility]; Protocol Last Infusion: 10/02/20 10:15 Dose: Infused Documented by: Loperamide HCl (Imodium) 2 mg PO PRN PRN PRN Reason: Diarrhea Last Admin: 10/02/20 09:28 Dose: 2 mg Documented by: Nicotine (Nicoderm) 21 mg TOPICAL DAILY@1000 EDUARDO Last Admin: 10/02/20 09:29 Dose: 21 mg Documented by: Ondansetron HCl (Zofran) 4 mg IV Q4HP PRN PRN Reason: Nausea And Vomiting Last Admin: 10/02/20 07:43 Dose: 4 mg Documented by: Potassium Chloride (Kdur) 40 meq PO UD PRN PRN Reason: Potssium is 3-3.5 Last Admin: 09/30/20 07:52 Dose: 40 meq Documented by: Potassium Chloride (Kdur) 40 meq PO UD PRN PRN Reason: Potassium < 3 Promethazine HCl (Phenergan) 12.5 mg IV Q6HP PRN PRN Reason: Nausea And Vomiting Last Admin: 10/02/20 13:12 Dose: 12.5 mg Documented by: Sodium Chloride (Saline Flush) 10 ml IV Q8 EDUARDO Last Admin: 10/02/20 16:20 Dose: Not Given Documented by: Zolpidem Tartrate (Ambien) 5 mg PO HSP PRN PRN Reason: Insomnia Last Admin: 10/01/20 22:09 Dose: 5 mg Documented by: A/P Narrative A/P Narrative: 1. Pyelonephritis: CT abd showed Right pyelonephritis Urine culture showed Ecoli, sensitive to cephalosporins and cipro WBC went down to normal Continue rocephin 2g iv daily 2. Bacteremia - GNB Repeat blood culture, continue rocephin 3. Sepsis with lactic acidosis: 4. Volume depletion: improved 5. depression/anxiety: 6. Tobacco abuse: 7. mild hyponatremia/hypokalemia: 2/2 above P: -Rocephin -cont psych meds -Smoking cessation counseling -ppx: lovenox Time Spent With Patient Time: Total time spent is greater than 50% in coordination of care (as documented) at patient's floor/unit and/or counseling patient: QUALITY VTE Deep Vein Thrombosis/Pulmonary Embolism Present on Admission: No
[2020-10-02] MEDS: ZOLPIDEM 5 MG TABLET PO PRN (20:15)
[2020-10-02] MEDS ORDERED: ESCITALOPRAM 10 MG TABLET PO SCH (21:00)
[2020-10-02] MEDS: ACETAMINOPHEN 325 MG TABLET PO PRN (22:23)
[2020-10-03] MEDS: 0.9 % SODIUM CHLORIDE 10 ML SYRINGE IV SCH (04:11)
[2020-10-03 07:07] LABS: ALT/SGPT 12 U/L (<40); AST/SGOT 17 U/L (<32); Albumin 2.6 gm/dL (3.2-5.2); Albumin/Globulin Ratio 0.7 (1.0-2.3); Alkaline Phosphatase 84 U/L (39-117); Bilirubin,Total 0.5 mg/dL (0.1-1.0); Blood Urea Nitrogen 2 mg/dL (6-20); Calcium 8.7 mg/dL (8.6-10.4); Carbon Dioxide 26 mmol/L (22-30); Chloride 102 mmol/L (96-108); Globulin 3.5 gm/dL (2.2-3.7); Glomerular Filtration Rate 114; Glucose 89 mg/dL (70-105); Phosphorous 3.3 mg/dL (2.5-4.5)
[2020-10-03 08:50] LABS: Basophils # (Auto) 0.08 K/mcL (0.00-0.20); Basophils % (Auto) 1.3 % (0.0-2.0); Eosinophils # (Auto) 0.13 K/mcL (0.00-0.70); Eosinophils % (Auto) 2.2 % (0.0-7.0); Hematocrit 49.5 % (36.0-48.0); Hemoglobin 17.5 g/dL (12.0-15.0); Lymphocytes # (Auto) 2.17 K/mcL (1.50-4.80); Lymphocytes % (Auto) 36.6 % (15.0-49.0); Mean Cell Volume 94.1 fL (80.0-100.0); Mean Corpuscular HGB Conc 35.4 g/dL (31.0-36.0); Monocytes # (Auto) 0.65 K/mcL (0.10-0.90); Neutrophils % (Auto) 48.9 % (38.0-78.0); RBC 5.26 M/mcL (4.00-5.20); Red Cell Distribution Width 14.1 % (11.5-14.5); WBC 5.9 K/mcL (4.5-11.0)
[2020-10-03] MEDS: PROMETHAZINE 25 MG/ML VIAL IV PRN (09:44)
[2020-10-03] MEDS: HYDROcodone/APAP 5/325MG TABLET PO PRN (09:44)
[2020-10-03] MEDS: LOPERAMIDE 2 MG CAPSULE PO PRN (09:44)
[2020-10-03] MEDS: ENOXAPARIN 40 MG/0.4 ML SYRINGE SQ SCH (09:58)
[2020-10-03] MEDS: NICOTINE 21 MG PATCH TOPICAL SCH (09:58)
--- NOTE | 2020-10-03 10:14 | Discharge Summary ---
Discharge Provider Provider Patient information: Note initiated : 10/03/20 at 10:14 am Service Date, if different from initiated Date: [] Patient: Tamia Mulligan 35 y/o F admitted on 09/29/20 for N/V/D, Flank pain bilaterally, SOB. Chief Complaint: [] Date of admission: 09/29/20 15:22 Discharge date: 10/03/20 Primary care physician: LEDA Holman Consults: 09/29/20 13:26 Consult to Physician [CONS] Stat Comment: Consulting Provider: Cheo Manzanares Reason For Exam: Physician to Consult Discharge Meds Discharge Medications Home Medications escitalopram oxalate 10 mg tablet 15 mg PO QHS 05/09/20 [History Confirmed 09/29/20 Last Taken 09/28/20] zolpidem 5 mg PO PRN PRN 07/09/20 [History Confirmed 09/29/20 Last Taken 09/26/20] hydrochlorothiazide 12.5 mg PO QAMP PRN 08/09/20 [History Confirmed 09/29/20 Last Taken 09/06/20] hydroxyzine HCl 25 mg PO BID PRN 08/09/20 [History Confirmed 09/29/20 Last Taken 09/27/20] ciprofloxacin HCl [Cipro] 500 mg PO Q12H #20 tab 10/03/20 [Rx Last Taken Unknown] diphenhydramine HCl [Benadryl Allergy] 12.5 mg PO Q8H PRN #5 tab 10/03/20 [Rx Last Taken Unknown] loperamide 2 mg PO Q12HP PRN #5 cap 10/03/20 [Rx Last Taken Unknown] COURSE Hospital Course Hospital course: As per Dr. Manzanares, Ms. Mulligan is a 35 year old F Who presents ED with nausea vomiting diarrhea back pain abdominal pain. She was seen several days ago and IV fluids and felt told to follow-up with PCP. Patient has felt she is continue to worsen and she is having hard time keeping fluids down. In the ER she had work-up revealing mildly tachycardic and febrile with a leukocytosis and a mildly elevated lactate 2.4. CT imaging showed pyelonephritis in the right. Her urinalysis was consistent with infection. Abdominal pain is described as primarily over the bladder in the hypogastric region. Complaint of headache fever chills. She got dizzy several times after vomiting. 1. Pyelonephritis: CT abd showed Right pyelonephritis Urine culture showed Ecoli, sensitive to cephalosporins and cipro WBC went down to normal Continue rocephin 2g iv daily 2. Bacteremia - Ecoli Repeat blood culture, continue rocephin 3. Sepsis with lactic acidosis: resolved 4. Volume depletion: improved 5. depression/anxiety: 6. Tobacco abuse: 7. mild hyponatremia/hypokalemia: 2/2 above P: -Rocephin -cont psych meds -Smoking cessation counseling -ppx: lovenox Interval history: 09/30 Did have some headache through the night. Some nausea but no vomiting. Fevers and chills. But states overall feeling little better. Leukocytosis mildly improved. Low sodium potassium being replaced. Flank pain improving. 10/01 Pt still feels abd pain and nausea. Blood culture showed positive for GNB, sensitivity pending Urine culture showed Ecoli, sensitive to cephalosporine and cipro 10/02 Pt still feels some nausea. This morning she had low fever. Phos 1.9 today Continue rocephin and watch one morning night. 10/03 Pt feels fine and does not have any complaints. Patient had a mild fever yesterday morning 99.7 and yesterday afternoon 99.4. But today patient is afebrile. No leukocytosis. Denies fever, chills, headache, dizziness, chest pain, shortness of breath, abdominal pain, or dysuria. She walks in the [place] without any problems. She will be discharged to home to follow with PCP in 3 days. She will be discharged on Cipro for 10 days. Call PCP for medical issues. Discharge diagnosis: Pyelonephritis and Bacteremia Time Spent with Patient Time attestation: Total time spent providing and/or coordinating discharge services: EXAM Constitutional Vitals: Temp Pulse Resp BP Pulse Ox 98.8 F 86 18 133/89 99 10/03/20 07:03 10/03/20 07:03 10/03/20 07:03 10/03/20 07:03 10/03/20 07:03 Additional findings Additional findings: General: Alert, Awake, No acute Distress Eyes/N/T: EOMI Head/Neck: neck supple CV: RRR, No murmurs, Pulm: Clear b/l, no wheezing/rhonchi/rales Abd: soft, nontender, +BS x4. No CVA tenderness (resolved) Ext: no clubbing/cyanosis/edema Neuro: Alert, no focal deficits, moves all extremities, Skin: warm/dry Psych: Normal mood Discharge Data Data Completed and Pending Labs on day of discharge: Labs from last 24 hours 10/03/20 10/03/20 05:55 05:55 WBC 5.9 RBC 5.26 H Hgb 17.5 H Hct 49.5 H MCV 94.1 MCH 33.3 MCHC 35.4 RDW 14.1 Plt Count TNP MPV TNP Neut % (Auto) 48.9 Lymph % (Auto) 36.6 [place] % (Auto) 11.0 Eos % (Auto) 2.2 Baso % (Auto) 1.3 Lymph # (Auto) 2.17 [place] # (Auto) 0.65 Eos # (Auto) 0.13 Baso # (Auto) 0.08 Absolute Neutrophils 2.90 Sodium 137 Potassium 3.5 Chloride 102 Carbon Dioxide 26 Anion Gap 9.0 BUN 2 L Creatinine 0.7 GFR Calculation 114 Glucose 89 Calcium 8.7 Phosphorus 3.3 Total Bilirubin 0.5 AST 17 ALT 12 Alkaline Phosphatase 84 Total Protein 6.1 Albumin 2.6 L Globulin 3.5 Albumin/Globulin Ratio 0.7 L Discharge Plan Patient/Caregiver Discharge Instructions Activity: increase activity as tolerated Prescriptions: New loperamide 2 mg Capsule 2 mg PO Q12HP PRN (Reason: Diarrhea) Qty: 5 RF: 0 diphenhydramine HCl [Benadryl Allergy] 25 mg tablet 12.5 mg PO Q8H PRN (Reason: allergic reaction) Qty: 5 RF: 0 ciprofloxacin HCl [Cipro] 500 mg tablet 500 mg PO Q12H Qty: 20 RF: 0 Continued escitalopram oxalate [Lexapro] 10 mg tablet 15 mg PO QHS RF: 0 zolpidem 5 mg tablet 5 mg PO PRN PRN (Reason: Sleep) RF: 0 hydroxyzine HCl 25 mg Tablet 25 mg PO BID PRN (Reason: Anxiety) RF: 0 hydrochlorothiazide 12.5 mg Capsule 12.5 mg PO QAMP PRN (Reason: Edema) RF: 0 Follow Up Plan Follow up with: Ciezki,Darci F, [employer] [Primary Care Provider] - (in 3 days) Patient Disposition: Home, Self-Care Prognosis: Good Discharge Orders: Discharge Order (Routine); Ordered 10/03/20 Ordered By: Kevin PERES VTE Deep Vein Thrombosis/Pulmonary Embolism Present on Admission: No
[2020-10-03] MEDS: cefTRIAXone 2 GM in DEXTROSE 5% IN WATER 50 ML IV SCH (11:24)
--- NOTE | 2020-10-05 19:16 | Event Note ---
Event Note Event Note: Blood culture came back showed gram positive cocci in clusters seen in O2 bottle. I called Ms Tamia Mulligan and explained the result and importacne of further workup and treatment to her. She fully understood and promised me to go to the ER right now.
== END 2020-10-03 12:00 | disposition home or self-care (01) | DRG 872 ==
LOC: ED 09:37 → MEDSUR 15:22
PROVIDERS: ADMIT Internal Medicine; ATTEND Internal Medicine